=== PATIENT | male | born 1940 | race Caucasian/White ===

== ENCOUNTER 2017-08-19 23:36 | Emergency (ER) | payer OTHER ==
[~2017-08-19] VITALS: Ht 175.3 cm; Wt 80.2 kg
[~2017-08-19 23:36] MED LIST: ALFU1TAB10 PO; ASPI81TA82 PO; AVOD0.5C PO; EZET10 PO; MEDR4PAK3 PO; METH750T2 PO; PROT40TA PO; [UNRECOGNIZED DRUG - CODE] EX
[2017-08-19 23:40] VITALS: BP 147/68; PULSE 70; RESP 18; TEMP 98.3; O2SAT 96
[2017-08-19] MEDS ORDERED: LYRI50CA PO (23:54)
[2017-08-19] MEDS ORDERED: PANT40TA3 PO (23:54)
[2017-08-19] MEDS ORDERED: ASPI81CH CHEW (23:54)
[2017-08-19] MEDS ORDERED: AVOD0.5C PO (23:54)
[2017-08-19] MEDS ORDERED: UROX10TA3 PO (23:54)
[2017-08-19] MEDS ORDERED: ZETI10TA5 PO (23:54)
[2017-08-19] MEDS ORDERED: CLOB-23 TOPICAL (23:54)
[2017-08-20] MEDS ORDERED: traMADol HCL 50 MG TAB PO ONE (00:15)
--- NOTE | 2017-08-20 00:29 | PD ---
HPI Chief Complaint: Injury Time Seen by Provider: 00:01 Travel History International Travel<30 days: No Contact w/Intl Traveler<30days: No Traveled to known affect area: No History of Present Illness HPI This is a 77-year-old male who presents to the emergency department having dropped a metal portable bedframe on his left ankle yesterday. He's had intermittent severe sharp pains in his left ankle since then, with no associated numbness or weakness. He's been able to weight-bear on it but when he rests he feels like the pain gets worse. He has taken some improvement for it but it's not helping. He kept him up from sleep last night. 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) GERD: Yes Genitourinary: Yes (ENLARGE PROSTATE) Triglycerides - High: Yes Tetanus Vaccination: < 5 Years Influenza Vaccination: Yes Past Surgical History Cholecystectomy: Yes Social History Alcohol Use: Yes (Occ.) Tobacco Use: No Substance Use: No Allergies-Medications (Allergen,Severity, Reaction): Coded Allergies: No Known Allergies (Unverified , 08/19/17) Reported Meds & Prescriptions Reported Meds & Active Scripts Active Reported Cormax Scalp Topical (Clobetasol Propionate) 0.05% Soln 1 Applic TOPICAL BID Aspirin 81 Mg Chew 81 Mg CHEW DAILY Pantoprazole (Pantoprazole Sodium) 40 Mg Tab 40 Mg PO DAILY Zetia (Ezetimibe) 10 Mg Tab 10 Mg PO DAILY Avodart (Dutasteride) 0.5 Mg Cap 0.5 Mg PO DAILY Uroxatral ER 24 HR (Alfuzosin ER 24 HR) 10 Mg Tab 10 Mg PO DAILY Lyrica (Pregabalin) 50 Mg Cap 50 Mg PO DAILY Review of Systems General / Constitutional: No: Fever, Chills Respiratory: No: Cough Physical Exam Narrative GENERAL: Well-appearing, no acute distress, nontoxic SKIN: Ecchymoses over the anterior aspect of the left lateral malleolus. HEAD: Atraumatic. Normocephalic. ENT: No nasal bleeding or discharge. Moist mucous membranes Vascular: 2+ left DP pulse with normal capillary refill. MUSCULOSKELETAL: Tender to palpation over the lateral malleolus of the left ankle with localized swelling, full range of motion at the ankle. NEUROLOGICAL: Awake and alert. No obvious cranial nerve deficits. Motor grossly within normal limits. Normal speech. PSYCHIATRIC: Appropriate mood and affect; insight and judgment normal. Data Data Last Documented VS Vital Signs Date Time Temp Pulse Resp B/P (MAP) Pulse Ox O2 Delivery O2 Flow Rate FiO2 08/19/17 23:57 18 97 Room Air 08/19/17 23:40 98.3 70 147/68 (94) Orders Orders Ankle, Complete ([id number]) (08/20/17 ) Tramadol (Ultram) (08/20/17 00:15) MDM Medical Decision Making Medical Screen Exam Complete: Yes Emergency Medical Condition: Yes Interpretation(s) xray ankle reassuring Differential Diagnosis lateral malleolus fracture, ankle sprain, ankle contusion Narrative Course This is a 77 year old male who presents to the emergency department having sustained a blunt injury to his left lateral malleolus. Pt. has a normal neurovascular exam. Xray is negative for fracture. I suspect he is having pain from a contusion. I advised him to acewarp the ankle, elevate the ankle at rest, and to take tramadol as needed for pain. Pt. will be discharged home. He can follow up with a autocad electrical designer in one week if not improved. Diagnosis Primary Impression: Ankle contusion Qualified Codes: S90.02XA - Contusion of left ankle, initial encounter Patient Instructions: General Instructions Additional Instructions: Rest, anoop wrap and elevate your left ankle. Take tramadol and ibuprofen as needed for pain. Follow up with a autocad electrical designer if you are not improved in one week. Med/Other Pt SpecificInfo: Prescription(s) given Scripts Tramadol (Tramadol) 50 Mg Tab 50 MG PO Q6H Y for PAIN, #10 TAB 0 Refills Prov: Kirstin Kelley MD 08/20/17 Disposition: 01 DISCHARGE HOME Condition: Stable Kirstin Kelley MD Aug 20, 2017 00:29
--- NOTE | 2017-08-20 00:37 | RADRPT ---
EXAM DATE/TIME: 08/20/2017 00:19 [facility] COMPARISON: No previous studies available for comparison. INDICATIONS : Left ankle pain. MEDICAL HISTORY : None. SURGICAL HISTORY : None. ENCOUNTER: Initial ACUITY: 2 days PAIN SCORE: 6/10 LOCATION: Left ankle FINDINGS: No acute fracture or subluxation is seen of the left ankle. There is mild and fairly generalized soft tissue swelling/edema. Mild cortical irregularity seen at the tip of the medial malleolus typical of old sprains. CONCLUSION: Mild soft tissue swelling without acute fracture or subluxation of the left ankle. Phi Win MD on August 20, 2017 at 0:35 Board Certified Radiologist. This report was verified electronically.
[2017-08-20] MEDS ORDERED: TRAM50TA PO (00:43)
[2017-08-20 00:55] VITALS: BP 145/66; PULSE 72; RESP 18; O2SAT 97
== END 2017-08-20 00:56 | disposition home or self-care (01) ==
LOC: PHED 23:36
DX: S90.02XA Contusion of left ankle, initial encounter (principal); E78.00 Pure hypercholesterolemia, unspecified; K21.9 Gastro-esophageal reflux disease without esophagitis; W22.8XXA Striking against or struck by other objects, initial encounter; Z86.718 Personal history of other venous thrombosis and embolism; Z86.711 Personal history of pulmonary embolism; Z79.82 Long term (current) use of aspirin; Z79.899 Other long term (current) drug therapy
CPT/HCPCS: 73610; 99283